=== PATIENT | female | born 1960 | race Caucasian/White ===

== ENCOUNTER → 2024-11-26 07:42 | Day surgery (SDC) | payer MEDICARE, MEDICAID, SELFPAY ==
[2024-11-15 14:13] VITALS: BMI 22.8
[2024-11-15 14:54] VITALS: BMI 22.8
--- NOTE | 2024-11-22 13:42 | HO.ANESPROP2 ---
Documented by User: Bryanna Peacock NP 11/22/24 13:43 HPI - Anesthesia Eval Consult details Narrative: 63yo F for Right Cataract Extraction IOL Insertion No previous cataract on record CAD with stent, CHF, COPD PMFSH Past Medical History Medical History (Updated 11/15/24 @ 14:59 by Thao Bull, RN) Wears dentures Legally blind History of blood transfusion Type 2 diabetes mellitus with peripheral neuropathy Hx-TIA (transient ischemic attack) (~2012) PTSD (post-traumatic stress disorder) PAD (peripheral artery disease) Osteoarthritis Multiple sclerosis Hyponatremia HLD (hyperlipidemia) Hx of sinus tachycardia Hx of decubitus ulcer Depression CHF (congestive heart failure) Chronic pain syndrome COPD (chronic obstructive pulmonary disease) Cervical spine degeneration Carotid artery stenosis Bruising, spontaneous Borderline personality disorder in adult Bipolar affective History of malignant neoplasm of both breasts Recovering alcoholic in remission CAD (coronary artery disease) Surgical History Surgical History Hx of cholecystectomy Hx of hysterectomy Hx of appendectomy Hx of hernia repair Hx of breast reconstruction S/P insertion of iliac artery stent (~2014) Hx of bilateral mastectomy History of heart artery stent Social History Social History (Updated 11/15/24 @ 14:58 by Thao Bull RN) Household Members Other:: son Herberth Are you a primary patient care manager to a significant other at home: No Do you presently have visiting nurse or other home services: No Patient Tobacco Use Status: Former Tobacco user Tobacco use type: Cigarette Smoked in Last 30 Days: No Use of substances other than those prescribed or required for medical reasons: No Are you DNR?: No Advance Directives: No Advance Directives Information Provided: Yes Advance Directives on File: No Nutrition Risks: Dental problems Meds Allergies Allergy/AdvReac Type Severity Reaction Status Date / Time ciprofloxacin Allergy Severe Anaphylaxis Verified 11/26/24 09:09 levofloxacin Allergy Severe Anaphylaxis Verified 11/26/24 09:09 sulfamethoxazole Allergy Severe Anaphylaxis Verified 11/26/24 09:09 [From Bactrim] trimethoprim [From Bactrim] Allergy Severe Anaphylaxis Verified 11/26/24 09:09 Home Medications ?Medication ?Instructions ?Recorded ?Confirmed ?Last Taken ?Type albuterol sulfate 90 mcg/actuation 2 puff inhalation Q4-6H PRN 11/15/24 11/15/24 11/26/24 History aerosol inhaler (Ventolin HFA) Shortness Of Breath Or Wheezing atorvastatin 80 mg tablet 80 mg PO DAILY 11/15/24 11/15/24 11/26/24 History buspirone 10 mg tablet 10 mg PO DAILY 11/15/24 11/26/24 11/26/24 History duloxetine 60 mg capsule,delayed 60 mg PO DAILY 11/15/24 11/15/24 11/26/24 History release fluticasone 250 mcg-salmeterol 50 1 ea inhalation BID 11/15/24 11/15/24 Unknown History mcg/dose blistr powdr for inhalation (Scott Worley) furosemide 20 mg tablet 20 mg PO DAILY 11/15/24 11/26/24 11/25/24 History ipratropium 20 mcg-albuterol 100 1 puff inhalation Q4H 11/15/24 11/15/24 Unknown History mcg/actuation mist for inhalation (Combivent Respimat) isosorbide mononitrate 120 mg 120 mg PO QAM 11/15/24 11/15/24 11/26/24 History tablet,extended release 24 hr lamotrigine 200 mg tablet 200 mg PO DAILY 11/15/24 11/15/24 11/26/24 History lisinopril 5 mg tablet 5 mg PO DAILY 11/15/24 11/15/24 11/26/24 History metoprolol succinate 100 mg 100 mg PO DAILY 11/15/24 11/15/24 11/26/24 History tablet,extended release 24 hr nitroglycerin 0.4 mg sublingual 0.4 mg sublingual NEEDED angina 11/15/24 11/15/24 Unknown History tablet risperidone 3 mg tablet 3 mg PO BEDTIME 11/15/24 11/15/24 Unknown History trazodone 100 mg tablet 200 mg PO BEDTIME 11/15/24 11/15/24 Unknown History Exam Height,Weight and Vital Signs: Height 5 ft 2.99 in Weight 58.3 kg Assessment and Plan Assessment Anesthesia Assessment: Chart Reviewed Documented by User: Shraddha Santiago MD 11/26/24 09:17 [facility] Past Medical History Medical History (Updated 11/15/24 @ 14:59 by Thao Bull, RN) Wears dentures Legally blind History of blood transfusion Type 2 diabetes mellitus with peripheral neuropathy Hx-TIA (transient ischemic attack) (~2012) PTSD (post-traumatic stress disorder) PAD (peripheral artery disease) Osteoarthritis Multiple sclerosis Hyponatremia HLD (hyperlipidemia) Hx of sinus tachycardia Hx of decubitus ulcer Depression CHF (congestive heart failure) Chronic pain syndrome COPD (chronic obstructive pulmonary disease) Cervical spine degeneration Carotid artery stenosis Bruising, spontaneous Borderline personality disorder in adult Bipolar affective History of malignant neoplasm of both breasts Recovering alcoholic in remission CAD (coronary artery disease) Functional capacity: uses cane/walker Family History Family history of problems with anesthesia: No Surgical History Surgical History Hx of cholecystectomy Hx of hysterectomy Hx of appendectomy Hx of hernia repair Hx of breast reconstruction S/P insertion of iliac artery stent (~2014) Hx of bilateral mastectomy History of heart artery stent History of Problems with Anesthesia: No Social History Social History (Updated 11/15/24 @ 14:58 by Thao Bull, CARRIE) Household Members Other:: son Herberth Are you a primary patient care manager to a significant other at home: No Do you presently have visiting nurse or other home services: No Patient Tobacco Use Status: Former Tobacco user Tobacco use type: Cigarette Smoked in Last 30 Days: No Use of substances other than those prescribed or required for medical reasons: No Are you DNR?: No Advance Directives: No Advance Directives Information Provided: Yes Advance Directives on File: No Nutrition Risks: Dental problems Meds Allergies Allergy/AdvReac Type Severity Reaction Status Date / Time ciprofloxacin Allergy Severe Anaphylaxis Verified 11/26/24 09:09 levofloxacin Allergy Severe Anaphylaxis Verified 11/26/24 09:09 sulfamethoxazole Allergy Severe Anaphylaxis Verified 11/26/24 09:09 [From Bactrim] trimethoprim [From Bactrim] Allergy Severe Anaphylaxis Verified 11/26/24 09:09 Home Medications ?Medication ?Instructions ?Recorded ?Confirmed ?Last Taken ?Type albuterol sulfate 90 mcg/actuation 2 puff inhalation Q4-6H PRN 11/15/24 11/15/24 11/26/24 History aerosol inhaler (Ventolin HFA) Shortness Of Breath Or Wheezing atorvastatin 80 mg tablet 80 mg PO DAILY 11/15/24 11/15/24 11/26/24 History buspirone 10 mg tablet 10 mg PO DAILY 11/15/24 11/26/24 11/26/24 History duloxetine 60 mg capsule,delayed 60 mg PO DAILY 11/15/24 11/15/24 11/26/24 History release fluticasone 250 mcg-salmeterol 50 1 ea inhalation BID 11/15/24 11/15/24 Unknown History mcg/dose blistr powdr for inhalation (Scott Worley) furosemide 20 mg tablet 20 mg PO DAILY 11/15/24 11/26/24 11/25/24 History ipratropium 20 mcg-albuterol 100 1 puff inhalation Q4H 11/15/24 11/15/24 Unknown History mcg/actuation mist for inhalation (Combivent Respimat) isosorbide mononitrate 120 mg 120 mg PO QAM 11/15/24 11/15/24 11/26/24 History tablet,extended release 24 hr lamotrigine 200 mg tablet 200 mg PO DAILY 11/15/24 11/15/24 11/26/24 History lisinopril 5 mg tablet 5 mg PO DAILY 11/15/24 11/15/24 11/26/24 History metoprolol succinate 100 mg 100 mg PO DAILY 11/15/24 11/15/24 11/26/24 History tablet,extended release 24 hr nitroglycerin 0.4 mg sublingual 0.4 mg sublingual NEEDED angina 11/15/24 11/15/24 Unknown History tablet risperidone 3 mg tablet 3 mg PO BEDTIME 11/15/24 11/15/24 Unknown History trazodone 100 mg tablet 200 mg PO BEDTIME 11/15/24 11/15/24 Unknown History Exam Airway Mallampati Class: I TM Dist: >3cm Neck ROM: Full Heart: rrr Lungs: cta Assessment and Plan Assessment Anesthesia Assessment: Anesthesia Plan Discussed Final Anesthetic Review Family History of Problems with Anesthesia: No History of Problems with Anesthesia: No NPO: Yes ASA Class: III Final Preanesthetic Review: No Changes in Pt Med Stat, Meds/Allgs Chart Reviewed and Consent Obtained/Reviewed Patient Risk: Low Procedure Risk: Intermediate Anesthetic Plan Anesthetic Plan: MAC: Disposition: Standard PACU
[2024-11-26 09:29] VITALS: BMI 23.6
--- NOTE | 2024-11-26 10:11 | PC.NURSE ---
Patient in preop. Medications reconciled with patient, I took all of my morning meds today with a small sip of water and my albuterol inhaler, nothing else . Patient does not take any medications for diabetes, per her I am diet controlled . Blood sugar taken, critical result, 419. Dr. Santiago made aware. Per Dr. Santiago and Dr. Arias, patient to go to the ED for treatment. This nurse explained plan to patient, who refused. States I want to go home, I refuse to go to the ER . Dr. Arias at bedside to further explain why patient should be treated in ED. Patient continues to refuse. Patients son and genoveva Kevin called. Permission from patient for this nurse to explain situation to Herberth. Per him, Her sugars are never this high, could it be because she took cough medicine this morning? She has had a cold and I didn't want her coughing in the procedure . Dr. Arias made aware. Herberth and patient educated on preop meds for next visit, no cough medicine. AMA paperwork filled out with two nurses and patient. Patient legally blind, helped to wheelchair by this nurse and wheeled to front of building by AB nav, when genoveva Kevin arrived.
[2024-11-26 10:27] LABS: Glucose, Whole Blood 419 mg/dL (60-115)
== END ==
PROVIDERS: PCP Internal Medicine; Visit Provider Ophthalmology
DX: H25.11 Age-related nuclear cataract, right eye (principal); Z53.09 Procedure and treatment not carried out because of other contraindication; E11.65 Type 2 diabetes mellitus with hyperglycemia
CPT/HCPCS: 82947; J3301

== ENCOUNTER 2024-12-10 08:33 | Day surgery (SDC) | payer MEDICARE, MEDICAID, SELFPAY ==
[2024-12-06 08:16] VITALS: BMI 22.8
[2024-12-10 09:25] LABS: Glucose, Whole Blood 97 mg/dL (60-115)
[2024-12-10 09:34] VITALS: BP 172/84; PULSE 72; RESP 14; TEMP 36.9; O2SAT 97; BMI 23.0
--- NOTE | 2024-12-10 09:44 | P.CONAN_ITS ---
HPI - Anesthesia Eval Consult details Narrative: cataract PMFSH Past Medical History Medical History Wears dentures Legally blind History of blood transfusion Type 2 diabetes mellitus with peripheral neuropathy Hx-TIA (transient ischemic attack) (~2012) PTSD (post-traumatic stress disorder) PAD (peripheral artery disease) Osteoarthritis Multiple sclerosis Hyponatremia HLD (hyperlipidemia) Hx of sinus tachycardia Hx of decubitus ulcer Depression CHF (congestive heart failure) Chronic pain syndrome COPD (chronic obstructive pulmonary disease) Cervical spine degeneration Carotid artery stenosis Bruising, spontaneous Borderline personality disorder in adult Bipolar affective History of malignant neoplasm of both breasts Recovering alcoholic in remission CAD (coronary artery disease) Family History Family history of problems with anesthesia: No Surgical History Surgical History Hx of cholecystectomy Hx of hysterectomy Hx of appendectomy Hx of hernia repair Hx of breast reconstruction S/P insertion of iliac artery stent (~2014) Hx of bilateral mastectomy History of heart artery stent History of Problems with Anesthesia: No Social History Social History Household Members Other:: son Are you a primary direct care supervisor to a significant other at home: No Do you presently have visiting nurse or other home services: No Patient Tobacco Use Status: Former Tobacco user Tobacco use type: Cigarette Smoked in Last 30 Days: No Use of substances other than those prescribed or required for medical reasons: No Spiritual Healthcare Practices: none Anabaptist Healthcare Practices: none Cultural Healthcare Practices: none Are you DNR?: No Advance Directives: No Advance Directives Information Provided: Yes Advance Directives on File: No Poor oral hygiene: No (full dentures) Meds Allergies Allergy/AdvReac Type Severity Reaction Status Date / Time ciprofloxacin Allergy Severe Anaphylaxis Verified 11/26/24 09:09 levofloxacin Allergy Severe Anaphylaxis Verified 11/26/24 09:09 sulfamethoxazole Allergy Severe Anaphylaxis Verified 11/26/24 09:09 [From Bactrim] trimethoprim [From Bactrim] Allergy Severe Anaphylaxis Verified 11/26/24 09:09 Active Medications: Current Medications Lactated Ringer's (Lr) 500 mls @ 50 mls/hr IV .Q10H DORI Stop: 12/10/24 19:44 Moxifloxacin HCl (Moxifloxacin Hcl 0.5 % Oph Caty 3 Ml Drpbtl) 1 drop EYE-LEFT POSTOP ONE Stop: 12/10/24 09:07 Povidone Iodine (Povidone Iodine 5 % Ophth Soln 30 Ml Bottle) 1 appl EYE-LEFT PREOP PRN PRN Reason: Pre-Op Surgical Implant Prophy Home Medications ?Medication ?Instructions ?Recorded ?Confirmed ?Last Taken ?Type albuterol sulfate 90 mcg/actuation 2 puff inhalation Q4-6H PRN 11/15/24 12/06/24 11/26/24 History aerosol inhaler (Ventolin HFA) Shortness Of Breath Or Wheezing atorvastatin 80 mg tablet 80 mg PO DAILY 11/15/24 12/06/24 11/26/24 History buspirone 10 mg tablet 10 mg PO DAILY 11/15/24 12/06/24 11/26/24 History duloxetine 60 mg capsule,delayed 60 mg PO DAILY 11/15/24 12/06/24 11/26/24 History release fluticasone 250 mcg-salmeterol 50 1 ea inhalation BID 11/15/24 12/06/24 Unknown History mcg/dose blistr powdr for inhalation (Wixela Inhub) furosemide 20 mg tablet 20 mg PO DAILY 11/15/24 12/06/24 11/25/24 History ipratropium 20 mcg-albuterol 100 1 puff inhalation Q4H 11/15/24 12/06/24 Unknown History mcg/actuation mist for inhalation (Combivent Respimat) isosorbide mononitrate 120 mg 120 mg PO QAM 11/15/24 12/06/24 11/26/24 History tablet,extended release 24 hr lamotrigine 200 mg tablet 200 mg PO DAILY 11/15/24 12/06/24 11/26/24 History lisinopril 5 mg tablet 5 mg PO DAILY 11/15/24 12/06/24 11/26/24 History metoprolol succinate 100 mg 100 mg PO DAILY 11/15/24 12/06/24 11/26/24 History tablet,extended release 24 hr nitroglycerin 0.4 mg sublingual 0.4 mg sublingual NEEDED angina 11/15/24 12/06/24 Unknown History tablet risperidone 3 mg tablet 3 mg PO BEDTIME 11/15/24 12/06/24 Unknown History trazodone 100 mg tablet 200 mg PO BEDTIME 11/15/24 12/06/24 Unknown History Exam Height,Weight and Vital Signs: Height 5 ft 2.99 in Weight 58.967 kg Last Vital Signs Temp 98.4 F 12/10/24 09:34 Pulse 72 12/10/24 09:34 Resp 14 12/10/24 09:34 BP 172/84 H 12/10/24 09:34 Pulse Ox 97 12/10/24 09:34 O2 Del Method Room Air 12/10/24 09:34 Pertinent Lab Results Pertinent Lab Results: Laboratory Tests 12/10/24 09:21 POC Glucose 97 Airway Mallampati Class: II TM Dist: <=3cm Neck ROM: Limited Heart: rrr Lungs: cta Assessment and Plan Assessment Anesthesia Assessment: Anesthesia Plan Discussed Final Anesthetic Review Family History of Problems with Anesthesia: No History of Problems with Anesthesia: No NPO: Yes ASA Class: III Final Preanesthetic Review: No Changes in Pt Med Stat, Meds/Allgs Chart Revie wed, Consent Obtained/Reviewed and Anes Risks/Benef Reviewed Patient Risk: Intermediate Procedure Risk: Low Anesthetic Plan Anesthetic Plan: MAC: Disposition: Standard PACU
[2024-12-10] MEDS: Cyclopentolate 1 % Ophth Sol 2 ML DRPBTL 1 DROP EYE-LEFT ×3 (09:47→09:51)
[2024-12-10] MEDS: Tropicamide 1 % Ophth Sol 3 ML BTL 1 DROP EYE-LEFT ×3 (09:47→09:52)
[2024-12-10] MEDS: Tetracaine HCl/PF 0.5% Oph Sol 4 ML DROPS 1 DROP EYE-LEFT (09:47)
[2024-12-10] MEDS: Ketorolac Tromethamine 0.5% Op 10 ML DROPS 1 DROP EYE-LEFT ×3 (09:48→09:52)
[2024-12-10] MEDS: Phenylephrine HCL 2.5% Oph SoL 2 ML BOTTLE 1 DROP EYE-LEFT ×3 (09:49→09:52)
--- NOTE | 2024-12-10 09:52 | MHC.SHP ---
Pre-Procedural Eval Section A - 24 Hr Update-Section A only Date of Service: 12/10/24 The patient is an INPATIENT: No Changes since office visit: No Cold of Flu in the past 2 weeks, No New Medical Problems, No Changes in Medication and No Patient answered all questions The patient has been examined within 24 hours of the surgical procedure. The History & Physical has been completed within 30 days and I have reviewed it.: Yes Section B - Complete if H&P > 30 days Chief Complaint: Age-related nuclear cataract, left eye Allergies: Allergies Allergy/AdvReac Type Severity Reaction Status Date / Time ciprofloxacin Allergy Severe Anaphylaxis Verified 11/26/24 09:09 levofloxacin Allergy Severe Anaphylaxis Verified 11/26/24 09:09 sulfamethoxazole Allergy Severe Anaphylaxis Verified 11/26/24 09:09 [From Bactrim] trimethoprim [From Bactrim] Allergy Severe Anaphylaxis Verified 11/26/24 09:09 Plan Diagnosis/Plan: Unchanged I have reviewed the history and physical and performed a pertinent physical examination on my patient. No changes have occurred unless specified. Time Spent With Patient Time: Total time managing care of this patient today ____ minutes.
[2024-12-10] MEDS: Lactated Ringers 500 ML 50 ML IV (09:53)
--- NOTE | 2024-12-10 09:53 | HO.PNOPHT ---
Ophthalmology Procedure Procedure Date of Service: 12/10/24 Ophthalmology Viscoelastic: Healon Duet Dual Pack Pro Ophthalmology Lenses: IOL Acrysof MP - [id number] (22.5) Procedure Notes: PREOPERATIVE DIAGNOSIS: Decreased visual acuity left eye secondary to cataract POSTOPERATIVE DIAGNOSIS: Same PROCEDURE: Left cataract extraction with intraocular lens insertion SURGEON: David Li M.D. ANESTHESIA: Topical/MAC ESTIMATED BLOOD LOSS: None COMPLICATIONS: Capsular rupture After obtaining informed consent, the patient was brought to the operation room suite and placed in the supine position. After adequate sedation per anesthesia, topical drops of Tetracaine were given to the left eye. The eye was then prepped and draped in the usual sterile fashion. The operating room microscope was then positioned over the operative eye and a lid speculum placed. A paracentesis was created. Viscoelastic was then instilled into the anterior chamber. A three plane incision was then created temporally, utilizing a 2.85 mm keratome. Capsulotomy forceps were then utilized to create a circular tear capsulotomy. Hydrodissection and hydrodelineation were carried out until adequate mobilization of the nucleus occurred. Phacoemulsification was then utilized to remove the dense central nucleus. Capsular rupture was noted. The nucleus was postioned anterior to the Iris and phacoemulsifeied . An anterior Vitrectomy was preformed. The PCIOL was sutured to the Iris with gortex sutere. The residual Viscoat elastic was then removed utilizing the automated IA machine. The wound was check and found to be watertight. The patient tolerated the procedure well and the lid speculum was removed. Intracameral injection of Vigamox 0.1 mL followed by a subtenon injection of Kenalog-40 0.2 mL were administered. The patient will be seen in the a.m.
[2024-12-10 12:02] VITALS: BP 184/61; PULSE 72; RESP 18; TEMP 36.6; O2SAT 98
[2024-12-10 12:17] VITALS: BP 155/66; PULSE 73; RESP 18; TEMP 36.6; O2SAT 96
== END 2024-12-10 12:39 | disposition home or self-care (01) ==
PROVIDERS: PCP Internal Medicine; Visit Provider Ophthalmology
PROC: (CPT 66985; principal; 2024-12-10 10:30)
DX: H59.212 Accidental puncture and laceration of left eye and adnexa during an ophthalmic procedure (principal); H59.022 Cataract (lens) fragments in eye following cataract surgery, left eye; H25.12 Age-related nuclear cataract, left eye; H54.7 Unspecified visual loss; I11.0 Hypertensive heart disease with heart failure; I50.9 Heart failure, unspecified; E78.00 Pure hypercholesterolemia, unspecified; E11.9 Type 2 diabetes mellitus without complications; Z87.891 Personal history of nicotine dependence; Z88.2 Allergy status to sulfonamides; Z79.899 Other long term (current) drug therapy
CPT/HCPCS: 66984; 67005; 82947; J2004; J2250; J3010; J3301; V2630

== ENCOUNTER 2025-01-21 09:23 | Day surgery (SDC) | payer MEDICARE, MEDICAID, SELFPAY ==
--- NOTE | 2025-01-17 15:28 | HO.ANESPROP2 ---
HPI - Anesthesia Eval Consult details Narrative: 64yo F for Right Cataract Extraction IOL Insertion Left eye 12/10/24: Fent 51, Midaz 4 CAD with stent, CHF, COPD PMFSH Past Medical History Medical History History of blood transfusion History of bilateral breast cancer Alcoholism in remission Wears dentures Legally blind Type 2 diabetes mellitus with peripheral neuropathy Hx-TIA (transient ischemic attack) (~2012) PTSD (post-traumatic stress disorder) PAD (peripheral artery disease) Osteoarthritis Multiple sclerosis Hyponatremia HLD (hyperlipidemia) Hx of sinus tachycardia Hx of decubitus ulcer Depression CHF (congestive heart failure) Chronic pain syndrome COPD (chronic obstructive pulmonary disease) Cervical spine degeneration Carotid artery stenosis Bruising, spontaneous Borderline personality disorder in adult Bipolar affective History of malignant neoplasm of both breasts Recovering alcoholic in remission CAD (coronary artery disease) Family History Family history of problems with anesthesia: No Surgical History Surgical History Hx of left cataract extraction (12/10/24) Hx of cholecystectomy Hx of hysterectomy Hx of appendectomy Hx of hernia repair Hx of breast reconstruction S/P insertion of iliac artery stent (~2014) Hx of bilateral mastectomy History of heart artery stent History of Problems with Anesthesia: No Social History Social History Household Members Other:: son Are you a primary medical care administrator to a significant other at home: No Do you presently have visiting nurse or other home services: No Patient Tobacco Use Status: Former Tobacco user Tobacco use type: Cigarette Smoked in Last 30 Days: No Use of substances other than those prescribed or required for medical reasons: No Have you been hit, kicked, punched, or otherwise hurt by someone within the past year? If so, by whom?: No Are you DNR?: No Advance Directives: No Advance Directives Information Provided: No Advance Directives on File: No Recently lost weight without trying: No How much weight loss: Not applicable Eating poorly because of decreased appetite: No Nutrition screen score: 0 Nutrition Risks: No Nutritional Risk Patient : No : No Poor oral hygiene: Yes (missing teeth) Meds Allergies Allergy/AdvReac Type Severity Reaction Status Date / Time ciprofloxacin Allergy Severe Anaphylaxis Verified 01/21/25 10:53 levofloxacin Allergy Severe Anaphylaxis Verified 01/21/25 10:53 sulfamethoxazole Allergy Severe Anaphylaxis Verified 01/21/25 10:53 [From Bactrim] trimethoprim [From Bactrim] Allergy Severe Anaphylaxis Verified 01/21/25 10:53 Home Medications ?Medication ?Instructions ?Recorded ?Confirmed ?Last Taken ?Type albuterol sulfate 90 mcg/actuation 2 puff inhalation Q4-6H PRN 11/15/24 01/21/25 Unknown History aerosol inhaler (Ventolin HFA) Shortness Of Breath Or Wheezing atorvastatin 80 mg tablet 80 mg PO DAILY 11/15/24 01/21/25 01/21/25 History buspirone 10 mg tablet 10 mg PO DAILY 11/15/24 01/21/25 01/21/25 History duloxetine 60 mg capsule,delayed 60 mg PO DAILY 11/15/24 01/21/25 01/21/25 History release fluticasone 250 mcg-salmeterol 50 1 ea inhalation BID 11/15/24 01/21/25 Unknown History mcg/dose blistr powdr for inhalation (Scott Inhub) furosemide 20 mg tablet 20 mg PO DAILY 11/15/24 01/21/25 01/20/25 History ipratropium 20 mcg-albuterol 100 1 puff inhalation Q4H 11/15/24 01/21/25 Unknown History mcg/actuation mist for inhalation (Combivent Respimat) isosorbide mononitrate 120 mg 120 mg PO QAM 11/15/24 01/21/25 01/21/25 History tablet,extended release 24 hr lamotrigine 200 mg tablet 200 mg PO DAILY 11/15/24 01/21/25 01/21/25 History lisinopril 5 mg tablet 10 mg PO DAILY 11/15/24 01/21/25 01/21/25 History metoprolol succinate 100 mg 100 mg PO DAILY 11/15/24 01/21/25 01/21/25 History tablet,extended release 24 hr nitroglycerin 0.4 mg sublingual 0.4 mg sublingual NEEDED angina 11/15/24 01/21/25 Unknown History tablet risperidone 3 mg tablet 3 mg PO BEDTIME 11/15/24 01/21/25 Unknown History trazodone 100 mg tablet 200 mg PO BEDTIME 11/15/24 01/21/25 Unknown History aspirin 81 mg chewable tablet 81 mg PO DAILY 01/16/25 01/21/25 Unknown History insulin glargine 100 unit/mL (3 45 unit subcut QPM 01/16/25 01/21/25 01/20/25 19:00 History mL) subcutaneous pen (Lantus 23 units Solostar U-100 Insulin) Assessment and Plan Assessment Anesthesia Assessment: Chart Reviewed Final Anesthetic Review Family History of Problems with Anesthesia: No History of Problems with Anesthesia: No
[2025-01-21] MEDS: Tetracaine HCl/PF 0.5% Oph Sol 4 ML DROPS 1 DROP EYE-RIGHT (10:49)
[2025-01-21] MEDS: Cyclopentolate 1 % Ophth Sol 2 ML DRPBTL 1 DROP EYE-RIGHT ×3 (10:50→11:06)
[2025-01-21] MEDS: Tropicamide 1 % Ophth Sol 3 ML BTL 1 DROP EYE-RIGHT ×3 (10:52→11:08)
[2025-01-21] MEDS: Ketorolac Tromethamine 0.5% Op 5 ML DROPS 1 DROP EYE-RIGHT ×3 (10:54→11:10)
[2025-01-21] MEDS: Phenylephrine HCL 2.5% Oph SoL 2 ML BOTTLE 1 DROP EYE-RIGHT ×3 (10:56→11:12)
[2025-01-21 11:03] VITALS: BP 169/70; PULSE 78; RESP 16; TEMP 36.7; O2SAT 96; BMI 23.7
--- NOTE | 2025-01-21 11:14 | HO.ANESPROP2 ---
[facility] Past Medical History Medical History History of blood transfusion History of bilateral breast cancer Alcoholism in remission Wears dentures Legally blind Type 2 diabetes mellitus with peripheral neuropathy Hx-TIA (transient ischemic attack) (~2012) PTSD (post-traumatic stress disorder) PAD (peripheral artery disease) Osteoarthritis Multiple sclerosis Hyponatremia HLD (hyperlipidemia) Hx of sinus tachycardia Hx of decubitus ulcer Depression CHF (congestive heart failure) Chronic pain syndrome COPD (chronic obstructive pulmonary disease) Cervical spine degeneration Carotid artery stenosis Bruising, spontaneous Borderline personality disorder in adult Bipolar affective History of malignant neoplasm of both breasts Recovering alcoholic in remission CAD (coronary artery disease) Functional capacity: independent ambulation Patient : No Family History Family history of problems with anesthesia: No Surgical History Surgical History Hx of left cataract extraction (12/10/24) Hx of cholecystectomy Hx of hysterectomy Hx of appendectomy Hx of hernia repair Hx of breast reconstruction S/P insertion of iliac artery stent (~2014) Hx of bilateral mastectomy History of heart artery stent History of Problems with Anesthesia: No Social History Social History Household Members Other:: son Are you a primary health care / medical job titles to a significant other at home: No Do you presently have visiting nurse or other home services: No Patient Tobacco Use Status: Former Tobacco user Tobacco use type: Cigarette Smoked in Last 30 Days: No Use of substances other than those prescribed or required for medical reasons: No Have you been hit, kicked, punched, or otherwise hurt by someone within the past year? If so, by whom?: No Are you DNR?: No Advance Directives: No Advance Directives Information Provided: No Advance Directives on File: No Recently lost weight without trying: No How much weight loss: Not applicable Eating poorly because of decreased appetite: No Nutrition screen score: 0 Nutrition Risks: No Nutritional Risk Patient : No : No Poor oral hygiene: Yes (missing teeth) Meds Allergies Allergy/AdvReac Type Severity Reaction Status Date / Time ciprofloxacin Allergy Severe Anaphylaxis Verified 01/21/25 10:53 levofloxacin Allergy Severe Anaphylaxis Verified 01/21/25 10:53 sulfamethoxazole Allergy Severe Anaphylaxis Verified 01/21/25 10:53 [From Bactrim] trimethoprim [From Bactrim] Allergy Severe Anaphylaxis Verified 01/21/25 10:53 Active Medications: Current Medications Albuterol Sulfate (Albuterol Sulfate (0.083%) 2.5 Mg/3 Ml Vial.Neb) 2.5 mg INHALE ONCE PRN PRN Reason: Shortness of Breath/Wheezing Lactated Ringer's (Lr) 500 mls @ 50 mls/hr IV .Q10H DORI Stop: 01/21/25 20:44 Povidone Iodine (Povidone Iodine 5 % Ophth Soln 30 Ml Bottle) 1 appl EYE-RIGHT PREOP PRN PRN Reason: Pre-Op Surgical Implant Prophy Home Medications ?Medication ?Instructions ?Recorded ?Confirmed ?Last Taken ?Type albuterol sulfate 90 mcg/actuation 2 puff inhalation Q4-6H PRN 11/15/24 01/21/25 Unknown History aerosol inhaler (Ventolin HFA) Shortness Of Breath Or Wheezing atorvastatin 80 mg tablet 80 mg PO DAILY 11/15/24 01/21/25 01/21/25 History buspirone 10 mg tablet 10 mg PO DAILY 11/15/24 01/21/25 01/21/25 History duloxetine 60 mg capsule,delayed 60 mg PO DAILY 11/15/24 01/21/25 01/21/25 History release fluticasone 250 mcg-salmeterol 50 1 ea inhalation BID 11/15/24 01/21/25 Unknown History mcg/dose blistr powdr for inhalation (Scott Inhub) furosemide 20 mg tablet 20 mg PO DAILY 11/15/24 01/21/25 01/20/25 History ipratropium 20 mcg-albuterol 100 1 puff inhalation Q4H 11/15/24 01/21/25 Unknown History mcg/actuation mist for inhalation (Combivent Respimat) isosorbide mononitrate 120 mg 120 mg PO QAM 11/15/24 01/21/25 01/21/25 History tablet,extended release 24 hr lamotrigine 200 mg tablet 200 mg PO DAILY 11/15/24 01/21/25 01/21/25 History lisinopril 5 mg tablet 10 mg PO DAILY 11/15/24 01/21/25 01/21/25 History metoprolol succinate 100 mg 100 mg PO DAILY 11/15/24 01/21/25 01/21/25 History tablet,extended release 24 hr nitroglycerin 0.4 mg sublingual 0.4 mg sublingual NEEDED angina 11/15/24 01/21/25 Unknown History tablet risperidone 3 mg tablet 3 mg PO BEDTIME 11/15/24 01/21/25 Unknown History trazodone 100 mg tablet 200 mg PO BEDTIME 11/15/24 01/21/25 Unknown History aspirin 81 mg chewable tablet 81 mg PO DAILY 01/16/25 01/21/25 Unknown History insulin glargine 100 unit/mL (3 45 unit subcut QPM 01/16/25 01/21/25 01/20/25 19:00 History mL) subcutaneous pen (Lantus 23 units Solostar U-100 Insulin) Exam Height,Weight and Vital Signs: Height 5 ft 3 in Weight 60.691 kg Last Vital Signs Temp 98.1 F 01/21/25 11:03 Pulse 78 01/21/25 11:03 Resp 16 01/21/25 11:03 BP 169/70 H 01/21/25 11:03 Pulse Ox 96 01/21/25 11:03 O2 Del Method Room Air 01/21/25 11:03 Airway Mallampati Class: III TM Dist: >3cm Neck ROM: Full Heart: RRR Lungs: CTA Assessment and Plan Assessment Anesthesia Assessment: Anesthesia Plan Discussed and Chart Reviewed Final Anesthetic Review Family History of Problems with Anesthesia: No History of Problems with Anesthesia: No NPO: Yes ASA Class: III Final Preanesthetic Review: Meds/Allgs Chart Reviewed and Anes Risks/Benef Reviewed Patient Risk: Intermediate Procedure Risk: Low Anesthetic Plan Anesthetic Plan: MAC: Disposition: Standard PACU
[2025-01-21] MEDS: Lactated Ringers 500 ML 50 ML IV (11:21)
--- NOTE | 2025-01-21 11:45 | P.CONAN_ITS ---
[facility] Past Medical History Medical History History of blood transfusion History of bilateral breast cancer Alcoholism in remission Wears dentures Legally blind Type 2 diabetes mellitus with peripheral neuropathy Hx-TIA (transient ischemic attack) (~2012) PTSD (post-traumatic stress disorder) PAD (peripheral artery disease) Osteoarthritis Multiple sclerosis Hyponatremia HLD (hyperlipidemia) Hx of sinus tachycardia Hx of decubitus ulcer Depression CHF (congestive heart failure) Chronic pain syndrome COPD (chronic obstructive pulmonary disease) Cervical spine degeneration Carotid artery stenosis Bruising, spontaneous Borderline personality disorder in adult Bipolar affective History of malignant neoplasm of both breasts Recovering alcoholic in remission CAD (coronary artery disease) Functional capacity: independent ambulation Family History Family history of problems with anesthesia: No Surgical History Surgical History Hx of left cataract extraction (12/10/24) Hx of cholecystectomy Hx of hysterectomy Hx of appendectomy Hx of hernia repair Hx of breast reconstruction S/P insertion of iliac artery stent (~2014) Hx of bilateral mastectomy History of heart artery stent History of Problems with Anesthesia: No Social History Social History Household Members Other:: son Are you a primary summer child caregiver to a significant other at home: No Do you presently have visiting nurse or other home services: No Patient Tobacco Use Status: Former Tobacco user Tobacco use type: Cigarette Smoked in Last 30 Days: No Use of substances other than those prescribed or required for medical reasons: No Have you been hit, kicked, punched, or otherwise hurt by someone within the past year? If so, by whom?: No Are you DNR?: No Advance Directives: No Advance Directives Information Provided: No Advance Directives on File: No Recently lost weight without trying: No How much weight loss: Not applicable Eating poorly because of decreased appetite: No Nutrition screen score: 0 Nutrition Risks: No Nutritional Risk Patient : No : No Poor oral hygiene: Yes (missing teeth) Meds Allergies Allergy/AdvReac Type Severity Reaction Status Date / Time ciprofloxacin Allergy Severe Anaphylaxis Verified 01/21/25 10:53 levofloxacin Allergy Severe Anaphylaxis Verified 01/21/25 10:53 sulfamethoxazole Allergy Severe Anaphylaxis Verified 01/21/25 10:53 [From Bactrim] trimethoprim [From Bactrim] Allergy Severe Anaphylaxis Verified 01/21/25 10:53 Active Medications: Current Medications Albuterol Sulfate (Albuterol Sulfate (0.083%) 2.5 Mg/3 Ml Vial.Neb) 2.5 mg INHALE ONCE PRN PRN Reason: Shortness of Breath/Wheezing Lactated Ringer's (Lr) 500 mls @ 50 mls/hr IV .Q10H DORI Stop: 01/21/25 20:44 Last Admin: 01/21/25 11:21 Dose: 50 mls/hr Naloxone HCl (Naloxone Hcl 0.4 Mg/Ml Vial) 0.04 mg IVPUSH Q5M PRN PRN Reason: Excessive sedation or RR < 8 Povidone Iodine (Povidone Iodine 5 % Ophth Soln 30 Ml Bottle) 1 appl EYE-RIGHT PREOP PRN PRN Reason: Pre-Op Surgical Implant Prophy Home Medications ?Medication ?Instructions ?Recorded ?Confirmed ?Last Taken ?Type albuterol sulfate 90 mcg/actuation 2 puff inhalation Q4-6H PRN 11/15/24 01/21/25 Unknown History aerosol inhaler (Ventolin HFA) Shortness Of Breath Or Wheezing atorvastatin 80 mg tablet 80 mg PO DAILY 11/15/24 01/21/25 01/21/25 History buspirone 10 mg tablet 10 mg PO DAILY 11/15/24 01/21/25 01/21/25 History duloxetine 60 mg capsule,delayed 60 mg PO DAILY 11/15/24 01/21/25 01/21/25 History release fluticasone 250 mcg-salmeterol 50 1 ea inhalation BID 11/15/24 01/21/25 Unknown History mcg/dose blistr powdr for inhalation (Wixela Inhub) furosemide 20 mg tablet 20 mg PO DAILY 11/15/24 01/21/25 01/20/25 History ipratropium 20 mcg-albuterol 100 1 puff inhalation Q4H 11/15/24 01/21/25 Unknown History mcg/actuation mist for inhalation (Combivent Respimat) isosorbide mononitrate 120 mg 120 mg PO QAM 11/15/24 01/21/25 01/21/25 History tablet,extended release 24 hr lamotrigine 200 mg tablet 200 mg PO DAILY 11/15/24 01/21/25 01/21/25 History lisinopril 5 mg tablet 10 mg PO DAILY 11/15/24 01/21/25 01/21/25 History metoprolol succinate 100 mg 100 mg PO DAILY 11/15/24 01/21/25 01/21/25 History tablet,extended release 24 hr nitroglycerin 0.4 mg sublingual 0.4 mg sublingual NEEDED angina 11/15/24 01/21/25 Unknown History tablet risperidone 3 mg tablet 3 mg PO BEDTIME 11/15/24 01/21/25 Unknown History trazodone 100 mg tablet 200 mg PO BEDTIME 11/15/24 01/21/25 Unknown History aspirin 81 mg chewable tablet 81 mg PO DAILY 01/16/25 01/21/25 Unknown History insulin glargine 100 unit/mL (3 45 unit subcut QPM 01/16/25 01/21/25 01/20/25 19:00 History mL) subcutaneous pen (Lantus 23 units Solostar U-100 Insulin) Exam Height,Weight and Vital Signs: Height 5 ft 3 in Weight 60.691 kg Last Vital Signs Temp 98.1 F 01/21/25 11:03 Pulse 78 01/21/25 11:03 Resp 16 01/21/25 11:03 BP 169/70 H 01/21/25 11:03 Pulse Ox 96 01/21/25 11:03 O2 Del Method Room Air 01/21/25 11:03 Airway Mallampati Class: III TM Dist: >3cm Neck ROM: Full Denture: Upper and Lower Heart: RRR Lungs: CTA Assessment and Plan Assessment Anesthesia Assessment: Anesthesia Plan Discussed and Chart Reviewed Final Anesthetic Review Family History of Problems with Anesthesia: No History of Problems with Anesthesia: No NPO: Yes ASA Class: III Final Preanesthetic Review: Meds/Allgs Chart Reviewed, Consent Obtained/Reviewed and Anes Risks/Benef Reviewed Patient Risk: Intermediate Procedure Risk: Low Anesthetic Plan Anesthetic Plan: MAC: Disposition: Standard PACU
--- NOTE | 2025-01-21 11:50 | P.PCNO_ITS ---
Ophthalmology Procedure Procedure Date of Service: 01/21/25 Ophthalmology Viscoelastic: Healon Duet Dual Pack Pro Ophthalmology Lenses: IOL Acrysof MP - [id number] (23) Procedure Notes: PREOPERATIVE DIAGNOSIS: Decreased visual acuity right eye secondary to cataract POSTOPERATIVE DIAGNOSIS: Same PROCEDURE: Right cataract extraction with intraocular lens insertion SURGEON: David Li M.D. ANESTHESIA: Topical/MAC ESTIMATED BLOOD LOSS: None COMPLICATIONS: None After obtaining informed consent, the patient was brought to the operating room suite and placed in the supine position. After adequate sedation per anesthesia, topical drops of Tetracaine were given to the right eye. The eye was then prepped and draped in the usual sterile fashion. The operating room microscope was then positioned over the operative eye and a lid speculum placed. A paracentesis was created. Viscoelastic was then instilled into the anterior chamber. A three plane incision was then created temporally, utilizing a 2.85 mm keratome. Capsulotomy forceps were then utilized to create a circular tear capsulotomy. Hydrodissection and hydrodelineation were carried out until adequate mobilization of the nucleus occurred. Phacoemulsification was then utilized to remove the dense central nucl eus followed by removal of the cortical material utilizing the automated aspiration irrigation unit. Viscoelastic was instilled into the posterior capsular bag followed by placement of a posterior chamber intraocular lens without difficulty. The residual Viscoelastic was then removed utilizing the automated IA machine. The wound was checked and found to be watertight. The patient tolerated the procedure well and the lid speculum was removed. Intracameral injection of Vigamox 0.1 mL followed by a subtenon injection of Kenalog-40 0.2 mL were administered. The patient will be seen in the a.m.
--- NOTE | 2025-01-21 11:50 | MHC.SHP ---
Pre-Procedural Eval Section A - 24 Hr Update-Section A only Date of Service: 01/21/25 The patient is an INPATIENT: No Changes since office visit: No Cold of Flu in the past 2 weeks, No New Medical Problems, No Changes in Medication and No Patient answered all questions The patient has been examined within 24 hours of the surgical procedure. The History & Physical has been completed within 30 days and I have reviewed it.: Yes Section B - Complete if H&P > 30 days Chief Complaint: Age-related nuclear cataract, right eye Allergies: Allergies Allergy/AdvReac Type Severity Reaction Status Date / Time ciprofloxacin Allergy Severe Anaphylaxis Verified 01/21/25 10:53 levofloxacin Allergy Severe Anaphylaxis Verified 01/21/25 10:53 sulfamethoxazole Allergy Severe Anaphylaxis Verified 01/21/25 10:53 [From Bactrim] trimethoprim [From Bactrim] Allergy Severe Anaphylaxis Verified 01/21/25 10:53 Plan Diagnosis/Plan: Unchanged I have reviewed the history and physical and performed a pertinent physical examination on my patient. No changes have occurred unless specified. Time Spent With Patient Time: Total time managing care of this patient today ____ minutes.
[2025-01-21 12:30] VITALS: BP 140/70; PULSE 65; RESP 14; TEMP 36.4
--- NOTE | 2025-01-21 12:51 | HO.POSTANES ---
Post Anesthesia Evaluation Post Anesthesia Evaluation Date of Service: 01/21/25 Vital Signs: Vital Signs Temp Pulse Resp BP Pulse Ox O2 Del Method 01/21/25 12:30 97.6 F 65 14 140/70 H 01/21/25 11:03 98.1 F 78 16 169/70 H 96 Room Air Anesthesia: Monitored Mental Status: Awake Pain Control: Satisfactory Nausea/Vomiting: None Hydration: Adequate Anesthesia-Related Issues: No Anes. Related Issues
== END 2025-01-21 12:36 | disposition home or self-care (01) ==
PROVIDERS: PCP Internal Medicine; Visit Provider Ophthalmology
PROC: (CPT 66985; principal; 2025-01-21 12:00)
DX: H25.11 Age-related nuclear cataract, right eye (principal); H54.7 Unspecified visual loss; I11.0 Hypertensive heart disease with heart failure; I50.9 Heart failure, unspecified; E11.9 Type 2 diabetes mellitus without complications; E78.00 Pure hypercholesterolemia, unspecified; Z79.899 Other long term (current) drug therapy; Z88.2 Allergy status to sulfonamides; Z87.891 Personal history of nicotine dependence
CPT/HCPCS: 66984; J2250; J3301; V2630

== ENCOUNTER 2025-02-04 10:58 | Day surgery (SDC) | payer MEDICARE, MEDICAID, SELFPAY ==
[2025-01-31 13:34] VITALS: BMI 24.1
--- NOTE | 2025-01-31 15:04 | HO.ANESPROP2 ---
Documented by User: Bryanna Peacock NP 01/31/25 15:04 HPI - Anesthesia Eval Consult details Narrative: 64yo F for Remove Retained Lens Fragment (NO DILATION) Right eye 01/21/25: Midaz 2 Left eye 12/10/24: Fent 50, Midaz 4 CAD with stent, CHF, COPD PMFSH Past Medical History Medical History History of blood transfusion History of bilateral breast cancer Alcoholism in remission Wears dentures Legally blind Type 2 diabetes mellitus with peripheral neuropathy Hx-TIA (transient ischemic attack) (~2012) PTSD (post-traumatic stress disorder) PAD (peripheral artery disease) Osteoarthritis Multiple sclerosis Hyponatremia HLD (hyperlipidemia) Hx of sinus tachycardia Hx of decubitus ulcer Depression CHF (congestive heart failure) Chronic pain syndrome COPD (chronic obstructive pulmonary disease) Cervical spine degeneration Carotid artery stenosis Bruising, spontaneous Borderline personality disorder in adult Bipolar affective History of malignant neoplasm of both breasts Recovering alcoholic in remission CAD (coronary artery disease) Family History Family history of problems with anesthesia: No Surgical History Surgical History Hx of right cataract extraction (01/21/25) Hx of left cataract extraction (12/10/24) Hx of cholecystectomy Hx of hysterectomy Hx of appendectomy Hx of hernia repair Hx of breast reconstruction S/P insertion of iliac artery stent (~2014) Hx of bilateral mastectomy History of heart artery stent History of Problems with Anesthesia: No Social History Social History Household Members Other:: son Are you a primary career development manager to a significant other at home: No Do you presently have visiting nurse or other home services: No Patient Tobacco Use Status: Former Tobacco user Tobacco use type: Cigarette Have you been hit, kicked, punched, or otherwise hurt by someone within the past year? If so, by whom?: No Are you DNR?: No Advance Directives: No Advance Directives Information Provided: Yes Recently lost weight without trying: No Nutrition Risks: No Nutritional Risk Meds Allergies Allergy/AdvReac Type Severity Reaction Status Date / Time ciprofloxacin Allergy Severe Anaphylaxis Verified 02/04/25 13:30 levofloxacin Allergy Severe Anaphylaxis Verified 02/04/25 13:30 sulfamethoxazole Allergy Severe Anaphylaxis Verified 02/04/25 13:30 [From Bactrim] trimethoprim [From Bactrim] Allergy Severe Anaphylaxis Verified 02/04/25 13:30 Home Medications ?Medication ?Instructions ?Recorded ?Confirmed ?Last Taken ?Type albuterol sulfate 90 mcg/actuation 2 puff inhalation Q4-6H PRN 11/15/24 01/31/25 02/04/25 History aerosol inhaler (Ventolin HFA) Shortness Of Breath Or Wheezing atorvastatin 80 mg tablet 80 mg PO DAILY 11/15/24 01/31/25 01/21/25 History buspirone 10 mg tablet 10 mg PO DAILY 11/15/24 01/31/25 02/04/25 History duloxetine 60 mg capsule,delayed 60 mg PO DAILY 11/15/24 01/31/25 02/04/25 History release fluticasone 250 mcg-salmeterol 50 1 ea inhalation BID 11/15/24 01/31/25 Unknown History mcg/dose blistr powdr for inhalation (Scott Worley) furosemide 20 mg tablet 20 mg PO DAILY 11/15/24 01/31/25 01/20/25 History ipratropium 20 mcg-albuterol 100 1 puff inhalation Q4H 11/15/24 01/31/25 Unknown History mcg/actuation mist for inhalation (Combivent Respimat) isosorbide mononitrate 120 mg 120 mg PO QAM 11/15/24 01/31/25 01/21/25 History tablet,extended release 24 hr lamotrigine 200 mg tablet 200 mg PO DAILY 11/15/24 01/31/25 02/04/25 History lisinopril 5 mg tablet 10 mg PO DAILY 11/15/24 01/31/25 02/04/25 History metoprolol succinate 100 mg 100 mg PO DAILY 11/15/24 01/31/25 02/04/25 History tablet,extended release 24 hr nitroglycerin 0.4 mg sublingual 0.4 mg sublingual NEEDED angina 11/15/24 01/31/25 Unknown History tablet risperidone 3 mg tablet 3 mg PO BEDTIME 11/15/24 01/31/25 Unknown History trazodone 100 mg tablet 200 mg PO BEDTIME 11/15/24 01/31/25 Unknown History aspirin 81 mg chewable tablet 81 mg PO DAILY 01/16/25 01/31/25 Unknown History insulin glargine 100 unit/mL (3 45 unit subcut QPM 01/16/25 01/31/25 02/04/25 History mL) subcutaneous pen (Lantus Solostar U-100 Insulin) Exam Height,Weight and Vital Signs: Height 5 ft 2.99 in Weight 61.7 kg Assessment and Plan Assessment Anesthesia Assessment: Chart Reviewed Final Anesthetic Review Family History of Problems with Anesthesia: No History of Problems with Anesthesia: No Documented by User: Shraddha Santiago MD 02/04/25 14:46 PMFSH Past Medical History Medical History History of blood transfusion History of bilateral breast cancer Alcoholism in remission Wears dentures Legally blind Type 2 diabetes mellitus with peripheral neuropathy Hx-TIA (transient ischemic attack) (~2012) PTSD (post-traumatic stress disorder) PAD (peripheral artery disease) Osteoarthritis Multiple sclerosis Hyponatremia HLD (hyperlipidemia) Hx of sinus tachycardia Hx of decubitus ulcer Depression CHF (congestive heart failure) Chronic pain syndrome COPD (chronic obstructive pulmonary disease) Cervical spine degeneration Carotid artery stenosis Bruising, spontaneous Borderline personality disorder in adult Bipolar affective History of malignant neoplasm of both breasts Recovering alcoholic in remission CAD (coronary artery disease) Surgical History Surgical History Hx of right cataract extraction (01/21/25) Hx of left cataract extraction (12/10/24) Hx of cholecystectomy Hx of hysterectomy Hx of appendectomy Hx of hernia repair Hx of breast reconstruction S/P insertion of iliac artery stent (~2014) Hx of bilateral mastectomy History of heart artery stent Social History Social History Household Members Other:: son Are you a primary career development manager to a significant other at home: No Do you presently have visiting nurse or other home services: No Patient Tobacco Use Status: Former Tobacco user Tobacco use type: Cigarette Have you been hit, kicked, punched, or otherwise hurt by someone within the past year? If so, by whom?: No Are you DNR?: No Advance Directives: No Advance Directives Information Provided: Yes Recently lost weight without trying: No Nutrition Risks: No Nutritional Risk Meds Allergies Allergy/AdvReac Type Severity Reaction Status Date / Time ciprofloxacin Allergy Severe Anaphylaxis Verified 02/04/25 13:30 levofloxacin Allergy Severe Anaphylaxis Verified 02/04/25 13:30 sulfamethoxazole Allergy Severe Anaphylaxis Verified 02/04/25 13:30 [From Bactrim] trimethoprim [From Bactrim] Allergy Severe Anaphylaxis Verified 02/04/25 13:30 Home Medications ?Medication ?Instructions ?Recorded ?Confirmed ?Last Taken ?Type albuterol sulfate 90 mcg/actuation 2 puff inhalation Q4-6H PRN 11/15/24 01/31/25 02/04/25 History aerosol inhaler (Ventolin HFA) Shortness Of Breath Or Wheezing atorvastatin 80 mg tablet 80 mg PO DAILY 11/15/24 01/31/25 01/21/25 History buspirone 10 mg tablet 10 mg PO DAILY 11/15/24 01/31/25 02/04/25 History duloxetine 60 mg capsule,delayed 60 mg PO DAILY 11/15/24 01/31/25 02/04/25 History release fluticasone 250 mcg-salmeterol 50 1 ea inhalation BID 11/15/24 01/31/25 Unknown History mcg/dose blistr powdr for inhalation (Markusela Inhub) furosemide 20 mg tablet 20 mg PO DAILY 11/15/24 01/31/25 01/20/25 History ipratropium 20 mcg-albuterol 100 1 puff inhalation Q4H 11/15/24 01/31/25 Unknown History mcg/actuation mist for inhalation (Combivent Respimat) isosorbide mononitrate 120 mg 120 mg PO QAM 11/15/24 01/31/25 01/21/25 History tablet,extended release 24 hr lamotrigine 200 mg tablet 200 mg PO DAILY 11/15/24 01/31/25 02/04/25 History lisinopril 5 mg tablet 10 mg PO DAILY 11/15/24 01/31/25 02/04/25 History metoprolol succinate 100 mg 100 mg PO DAILY 11/15/24 01/31/25 02/04/25 History tablet,extended release 24 hr nitroglycerin 0.4 mg sublingual 0.4 mg sublingual NEEDED angina 11/15/24 01/31/25 Unknown History tablet risperidone 3 mg tablet 3 mg PO BEDTIME 11/15/24 01/31/25 Unknown History trazodone 100 mg tablet 200 mg PO BEDTIME 11/15/24 01/31/25 Unknown History aspirin 81 mg chewable tablet 81 mg PO DAILY 01/16/25 01/31/25 Unknown History insulin glargine 100 unit/mL (3 45 unit subcut QPM 01/16/25 01/31/25 02/04/25 History mL) subcutaneous pen (Lantus Solostar U-100 Insulin) Exam Airway Mallampati Class: II (edentulius, dentures at home) TM Dist: >3cm Neck ROM: Full Heart: rrr Lungs: cta Assessment and Plan Assessment Anesthesia Assessment: Anesthesia Plan Discussed Final Anesthetic Review NPO: Yes ASA Class: III Final Preanesthetic Review: No Changes in Pt Med Stat, Meds/Allgs Chart Reviewed and Consent Obtained/Reviewed Patient Risk: Intermediate Procedure Risk: Low Anesthetic Plan Anesthetic Plan: MAC: Disposition: Standard PACU
[2025-02-04 13:19] LABS: Glucose, Whole Blood 126 mg/dL (60-115)
[2025-02-04 13:27] VITALS: BP 121/67; PULSE 84; RESP 18; TEMP 36.7; O2SAT 94
[2025-02-04] MEDS: Lactated Ringers 500 ML 50 ML IV (13:34)
[2025-02-04] MEDS: Tetracaine HCl/PF 0.5% Oph Sol 4 ML DROPS 1 DROP EYE-RIGHT (14:18)
--- NOTE | 2025-02-04 14:29 | PC.NURSE ---
report given to ambar segal at this time. aware to check for 24 hour and 2 spots to sign on preop record.
--- NOTE | 2025-02-04 15:16 | MHC.SHP ---
Pre-Procedural Eval Section A - 24 Hr Update-Section A only Date of Service: 02/04/25 The patient is an INPATIENT: No Changes since office visit: No Cold of Flu in the past 2 weeks, No New Medical Problems, No Changes in Medication and No Patient answered all questions The patient has been examined within 24 hours of the surgical procedure. The History & Physical has been completed within 30 days and I have reviewed it.: Yes Section B - Complete if H&P > 30 days Chief Complaint: Cataract (lens) fragments in eye following catarac Allergies: Allergies Allergy/AdvReac Type Severity Reaction Status Date / Time ciprofloxacin Allergy Severe Anaphylaxis Verified 02/04/25 13:30 levofloxacin Allergy Severe Anaphylaxis Verified 02/04/25 13:30 sulfamethoxazole Allergy Severe Anaphylaxis Verified 02/04/25 13:30 [From Bactrim] trimethoprim [From Bactrim] Allergy Severe Anaphylaxis Verified 02/04/25 13:30 Plan Diagnosis/Plan: Unchanged I have reviewed the history and physical and performed a pertinent physical examination on my patient. No changes have occurred unless specified. Time Spent With Patient Time: Total time managing care of this patient today ____ minutes.
[2025-02-04 15:36] VITALS: BP 180/70; PULSE 89; RESP 16; TEMP 37.2; O2SAT 97
[2025-02-04 15:44] LABS: Glucose, Whole Blood 82 mg/dL (60-115)
[2025-02-04 15:51] VITALS: BP 135/67; PULSE 88; RESP 16; TEMP 37.2; O2SAT 95
--- NOTE | 2025-02-05 02:25 | OP_ITS ---
DATE OF SERVICE: 02/04/2025 SURGEON: David Li MD PREOPERATIVE DIAGNOSIS: POSTOPERATIVE DIAGNOSIS: Residual remnant lens fragment, right eye. PROCEDURE PERFORMED: Removal of fragment. ESTIMATED BLOOD LOSS: COMPLICATIONS: ANESTHESIA: Local with MAC. ASSISTANTS: SPECIMENS: INDICATION FOR SURGERY: Residual remnant lens fragment, right eye. DESCRIPTION OF PROCEDURE: After obtaining informed consent, the patient was brought to the operating suite, placed in supine position. After adequate sedation per anesthesia, the right eye was prepped and draped in the usual sterile fashion. Attention was directed to the previous incision site where viscoelastic was instilled into the anterior chamber. The phaco unit was then utilized to remove the fragment from the eye followed by instillation of 0.1 mL Vigamox. The patient tolerated the procedure well and will be seen in followup. MD MARYURI Erickson/MODL / [id number]
== END 2025-02-04 15:55 | disposition home or self-care (01) ==
PROVIDERS: PCP Internal Medicine; Visit Provider Ophthalmology
PROC: (CPT 66850; principal; 2025-02-04 14:30)
DX: H59.021 Cataract (lens) fragments in eye following cataract surgery, right eye (principal); Z96.1 Presence of intraocular lens; I11.0 Hypertensive heart disease with heart failure; I50.9 Heart failure, unspecified; E11.9 Type 2 diabetes mellitus without complications; E78.00 Pure hypercholesterolemia, unspecified; Z79.899 Other long term (current) drug therapy; Z88.1 Allergy status to other antibiotic agents; Z87.891 Personal history of nicotine dependence
CPT/HCPCS: 66850; 82947; J1596; J2250